=== PATIENT | male | born 1975 | race American Indian/Alaskan Native ===

== ENCOUNTER 2018-10-02 08:57 | Emergency (ER) | payer OTHER ==
[2018-10-02 09:13] VITALS: BP 133/76
--- NOTE | 2018-10-02 09:51 | XRay Report ---
LUMBOSACRAL SPINE, 3 VIEWS: History: Trauma Findings: The vertebral bodies, disk spaces and posterior elements are intact. No compression deformity or malalignment. The SI joints are symmetric and unremarkable. Impression: 1. No evidence for acute injury to the lumbar spine.
--- NOTE | 2018-10-02 09:51 | XRay Report ---
CERVICAL SPINE, 3 views: History: Trauma. Findings: The vertebral bodies, disk spaces, posterior elements and prevertebral soft tissues are unremarkable. The dens is intact. No acute fracture or malalignment is identified. Impression: 1. No evidence for acute injury to the cervical spine.
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
== END 2018-10-02 11:06 | disposition home or self-care (01) ==
LOC: ED 08:57
DX: M54.2 Cervicalgia (principal); M54.9 Dorsalgia, unspecified; F17.200 Nicotine dependence, unspecified, uncomplicated; V89.2XXA Person injured in unspecified motor-vehicle accident, traffic, initial encounter; Y93.89 Activity, other specified; Y92.488 Other paved roadways as the place of occurrence of the external cause; Y99.8 Other external cause status
CPT/HCPCS: 72040; 72100; 99283